=== PATIENT | male | born 1970 | race Two or more races ===

== ENCOUNTER 2020-07-08 14:44 | Outpatient (REF) | payer MEDICARE, MEDICAID, SELFPAY | END 2020-07-08 14:45 | disposition home or self-care (01) | LOC: HO.LAB 14:44 | PROVIDERS: Visit Provider Internal Medicine | DX: Z20.822 Contact with and (suspected) exposure to COVID-19 (principal) | CPT/HCPCS: 36415; C9803; U0003 ==

== ENCOUNTER 2021-05-02 09:15 | Outpatient (REF) | payer MEDICARE, MEDICAID, SELFPAY ==
--- NOTE | ~2021-05-02 | XR_ITS ---
EXAMINATION: XR LUMBOSACRAL SPINE CLINICAL INFORMATION: Intervertebral disc disease with radiculopathy. COMPARISON: None TECHNIQUE: Three views of the lumbosacral spine. FINDINGS: There are 5 nonrib bearing lumbar vertebra. Patient is status post previous pedicle screw and marcela fixation with interdisc spacer placement at the L5-S1 level. Hardware appears intact. No acute fracture is seen. There is a mild grade 1 spondylolisthesis L3-L4. There is some marginal spurring present at multiple levels but most prominent at the T11-T12 and T12-L1 levels. XR/XR lumbar spine 2-3V IMPRESSION: Status post instrumentation L5-S1 with hardware appearing intact. No acute fracture identified.
[2021-05-02 10:32] LABS: Estimated Average Glucose 111 mg/dL; Hemoglobin A1c % 5.5 %
[2021-05-02 10:50] LABS: Prostate Specific Antigen Scr 1.48 ng/mL (<0.05-4.0); TSH reflex Free T4 1.06 uIU/mL (0.32-4.0)
[2021-05-02 10:53] LABS: Alanine Aminotransferase 34 U/L (0-40); Albumin Level 4.6 g/dL (3.5-5.0); Alkaline Phosphatase 102 U/L (39-117); Anion Gap 11 (12-20); Aspartate Amino Transferase 26 U/L (5-37); Bilirubin Total 0.7 mg/dL (0.0-1.0); Blood Urea Nitrogen 10 mg/dL (9-16); Calcium 9.5 mg/dL (8.4-10.2); Carbon Dioxide 29 mmol/L (22-29); Chloride 106 mmol/L (96-108); Cholesterol 222 mg/dL; Estimated Glomerular Filt Rate > 60; Glucose Fasting 88 mg/dL (60-99); HDL Cholesterol 38 mg/dL; LDL Cholesterol Calculated 160 mg/dl; Potassium 4.8 mmol/L (3.3-5.1); Sodium 141 mmol/L (135-145); Total Protein 7.1 g/dL (6.5-8.0); Triglycerides 120 mg/dL
== END 2021-05-02 09:16 | disposition home or self-care (01) ==
LOC: HO.XRAY 09:15
PROVIDERS: PCP Physician Assistant; Visit Provider Physician Assistant
DX: M51.16 Intervertebral disc disorders with radiculopathy, lumbar region (principal); Z13.1 Encounter for screening for diabetes mellitus; Z13.29 Encounter for screening for other suspected endocrine disorder; Z12.11 Encounter for screening for malignant neoplasm of colon; Z12.5 Encounter for screening for malignant neoplasm of prostate
CPT/HCPCS: 36415; 72100; 80053; 80061; 83036; 84153; 84443

== ENCOUNTER 2023-08-13 07:37 | Outpatient (AMB) | payer MEDICARE, MEDICAID, SELFPAY ==
--- NOTE | 2023-08-13 08:02 | A.OFFPC_ITS ---
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 Required: No Accompanied by: Self / Same As Patient Allergies codeine Allergy (Unknown, Verified 08/13/23 08:12) Itching Adhesive (ENV) Allergy (Unknown, Uncoded 10/29/19 00:00) itching of skin, Blistering and scarring Codeine Allergy (Unknown, Uncoded 10/29/19 00:00) itching of skin Medication List - Last Reconciled 08/13/23 by Dean Fitzpatrick PA-C bupropion HCl (Wellbutrin SR) 150 mg PO BID 30 days ibuprofen 800 mg PO TID PRN ipratropium-albuterol 20-100 mcg/actuation (Combivent Respimat) 1 puff inhalation Q6H 30 days pregabalin 100 mg PO BID 90 days Tobacco use date assessed: 08/13/23 Dental Screening Dental Screen Date: 08/13/23 Did you have a dental visit in the last 12 months?: No Did you have a dental problem in the last 6 months where you did not have access to dental care?: No Was dental information given to patient?: Patient has dentist HPI Left shoulder Rotator Cuff Surgery On 08/27/23 HPI Details Patient is a 53-year-old male here today for preop evaluation . Patient is due for left rotator cuff repair on 08/27/2023. Patient has a past medical history significant for lumbar disc disease with marcela placement done many years ago, COPD, tobacco use disorder. Patient has no history of CVA, NE or Congestive heart failure. Patient is not on any anticoagulation or anti-platelet therapy. .. COPD: His breathing has been stable with only p.r.n. use of his Combivent inhaler. Unfortunately continues to smoke. He has not had any COPD exacerbations Lumbar disc disease: As above patient did have back surgery in the past. Continues with Lyrica and ibuprofen for his pain relief. 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 Tobacco use disorder: He does report smoking a pack a day of cigarettes. Has been trying to wean down though has been unsuccessful. [facility] Surgical History Previous back surgery Family History Father Prostate cancer Social History Housing: House Alcohol intake: never Patient Tobacco Use Status: Current everyday Tobacco user Tobacco use type: Cigarette Cigarette Packs Per Day: 1 e-Cigarette/Vaping Use: Never Used Second Hand Smoke Exposure: No Substance Use Type: Marijuana service: No Current occupational status: unemployed and disabled Cognitive needs: No Hearing needs: No Vision needs: No Questionnaire PHQ-9 Over the last 2 weeks, how often have you been bothered by any of the following problems? 1. Little interest or pleasure in doing things: several days 2. Feeling down, depressed, or hopeless: several days 3. Trouble falling or staying asleep, or sleeping too much: nearly every day 4. Feeling tired or having little energy: more than half the days 5. Poor appetite or overeating: several days 6. Feeling bad about yourself - or that you are a failure or have let yourself or your family down: not at all 7. Trouble concentrating on things, such as reading the newspaper or watching television: not at all 8. Moving or speaking so slowly that other people could have noticed. Or the opposite - being so fidgety or restless that you have been moving around a lot more than usual: not at all 9. Thoughts that you would be better off or of hurting yourself in some way: not at all Total score: 8 Depression Screening Interpretation: Positive Depression Screening Follow-up: Existing condition Depression Screening Done: Yes 33614 - PHQ-9 Billing: Yes Source: Developed by Drs. Edwin Kapoor, Nancy Posey, Nghia Yuan and colleagues, with an educational silvana from [employer]. Thrive Questionnaire Date Thrive assessed: 08/13/23 I am a: Patient What is your living situation today?: I have a steady place to live Within the past 12 months, did the food you bought not last and you didn't have the money to get more?: Never true Within the past 12 months, did you worry whether your food would run out before you got money to buy more?: Never true Do you have trouble paying for medicines?: No Do you have trouble getting transportation to medical appointments?: No Do you have trouble paying your heating and electricity bill?: No Do you have trouble taking care of your child, family member or friend?: No Do you have trouble with day-to-day activities such as bathing, preparing meals, shopping, managing finances, etc.?: No Are you currently unemployed and looking for a job?: No Are you interested in more education?: No Please select the resources that you would like help with: None Currently or been in a relationship where the following occur: no concerns reported THRIVE Score: 0 AUDIT C Alcohol Use Questionnaire (AUDIT-C) 1. How often do you have a drink containing alcohol?: Never Total Score: 0 LUCIAN-7 AMB Questionnaire LUCIAN-7 Date LUCIAN - 7 assessed: 08/13/23 Feeling nervous, anxious, or on edge: 1 = Several days Not being able to stop or control worryin = Several days Worrying too much about different things: 3 = Nearly every day Trouble relaxin = Nearly every day Being so restless that it is hard to sit still: 3 = Nearly every day Becoming easily annoyed or irritable: 3 = Nearly every day Feeling afraid as if something awful might happen: 0 = Not at all Total LUCIAN-7 score (0-4 normal; 5-9 mild; 10-14 moderate; 15-21 severe): 14 Source: Developed by Drs. Edwin Kapoor, Nancy Posey, Nghia Yuan and colleagues, with an educational silvana from [employer]. LUCIAN-7 Assessment Billing LUCIAN-7 Assessment Tool: LUCIAN-7 Assessment 27769 Review of Systems Const Denies headache(s) Eyes Denies loss of vision ENT Denies vertigo, Denies dizziness, Denies headache(s) and Denies sore throat Card Denies chest pain, Denies leg edema and Denies lightheadedness Resp Denies cough, Denies hemoptysis and Denies wheezing GI Denies abdominal pain, Denies melena, Denies constipation, Denies diarrhea and Denies vomiting Denies dysuria, Denies urinary frequency and Denies urinary urgency Musc Denies arthralgias, Denies joint swelling, Denies numbness and Denies tingling Neuro Denies Abnormal speech present, Denies behavioral changes, Denies vertigo, Denies dizziness, Denies headache(s), Denies loss of vision, Denies memory loss, Denies numbness and Denies tingling Psych Denies anxiety, Denies behavioral changes, Denies depression, Denies memory loss and Denies panic attacks Maninder/Lymph Denies easy bleeding and Denies easy bruising Aller/Immun Denies wheezing Physical exam (Primary Care) Vital Signs: Last Vital Signs Pulse 78 08/13/23 08:04 BP 134/80 08/13/23 08:04 Pulse Ox 97 08/13/23 08:04 Oxygen Delivery Method Room Air 08/13/23 08:04 BMI result Body Mass Index 24.2 Tobacco/Smoking Status: Tobacco use Status Tobacco use date assessed 08/13/23 08/13/23 08:09 Patient Tobacco Use Status Current everyday Tobacco 08/13/23 08:09 Tobacco use type Cigarette 08/13/23 08:09 e-Cigarette/Vaping Use Never Used 08/13/23 08:09 PHQ-9: PHQ-9 Score PHQ-9: Total score 8 08/13/23 08:29 Depression Screening Interpretation: Positive Depression Screening Follow-up: Existing condition Thrive Assessment: Date of Thrive Assessment Date Thrive assessed 08/13/23 08/13/23 08:09 Currently or been in a relationship where the following occur: no concerns reported Const General: healthy appearing, no acute distress, alert and awake Nutritional Appearance: well nourished Orientation/consciousness: oriented to person, oriented to place and oriented to time [facility] Ears: TM's normal bilaterally General nose exam: Normal nasal mucous membranes and turbinates present Eyes Conjunctivae: conjunctivae normal Sclerae: sclerae normal Pupils: Equal, round and reactive pupils present Neck Neck: Yes no lymphadenopathy and Yes no JVD Thyroid: Thyroid normal Carotids: no bruits Resp Effort & Inspection: normal respiratory effort and not tachypneic Auscultation: no crackles, no rales, no rhonchi and no wheezes Cardio Rate: regular rate Rhythm: regular rhythm Heart sounds: no murmurs and normal S1 and S2 GI Palpation (GI): Soft to palpation, nontender, no hepatomegaly and no splenomegaly Auscultation: normal bowel sounds Skin General skin exam: no rashes or lesions noted and dry skin Neuro General: oriented to person, oriented to place and oriented to time Cranial nerves: Yes Equal, round and reactive pupils present Speech: No Abnormal speech present Gait exam (Neuro): Normal gait present Motor exam (neuro): no tremor noted Extrem Other: SOME LIMITED RANGE OF MOTION OF BILATERAL SHOULDERS Right upper extremity: ROM limited Left upper extremity: ROM limited Right lower extremity: full ROM; no edema Left lower extremity: full ROM; no edema Psych Mental Status: mental status grossly normal Speech and movement: Normal speech and movement present Affect: normal affect Attitude: cooperative Thought process: Normal thought process present Assessment and Plan Assessment & Plan (1) Pre-op evaluation: Code(s): Z01.818 - Encounter for other preprocedural examination Plan: Patient's vitals stable. Most recent labs stable and EKG within normal limits. Chest x-ray clear. Patient medically clear for needed elective left shoulder rotator cuff repair. (2) Rupture of left rotator cuff: Code(s): M75.102 - Unspecified rotator cuff tear or rupture of left shoulder, not specified as traumatic Qualifiers: Rotator cuff tear extent: complete Rotator cuff tear trauma status: nontraumatic Qualified Code(s): M75.122 - Complete rotator cuff tear or rupture of left shoulder, not specified as traumatic Plan: As per HPI . Has left rotator cuff tear and is anticipating surgery. (3) COPD (chronic obstructive pulmonary disease): Code(s): J44.9 - Chronic obstructive pulmonary disease, unspecified Qualifiers: COPD type: chronic bronchitis Chronic bronchitis type: mixed simple and mucopurulent Qualified Code(s): J41.8 - Mixed simple and mucopurulent chronic bronchitis Plan: Has history of COPD though symptoms are fairly controlled. Only rarely having to use his Combivent inhaler. Will send for chest x-ray preop evaluation (4) Smoker: Code(s): F17.200 - Nicotine dependence, unspecified, uncomplicated Plan: Patient unfortunately continues to smoke. Does understand he needs to quit smoking. Not interested in a nicotine replacement or medication at this time. Orders: Orders Complete Blood Count no Diff Today Z01.818 - Encounter for other preprocedural examination XR chest 2V Today J41.8 - Mixed simple and mucopurulent chronic bronchitis Basic Metabolic Panel Today Z01.818 - Encounter for other preprocedural examination ECG 12 lead EKG Today Z01.818 - Encounter for other preprocedural examination Prostate Specific Antigen Scr Today J41.8 - Mixed simple and mucopurulent chronic bronchitis, Z12.5 - Encounter for screening for malignant neoplasm of prostate Medications: Refilled ibuprofen 800 mg PO TID PRN 90 tabs 1RF for pain M51.16 - Intervertebral disc disorders with radiculopathy, lumbar region Coding Level of Care Code Est Pt Level 4 (51942) Diagnoses Pre-op evaluation Z01.818 Nontraumatic complete tear of left rotator cuff M75.122 Rotator cuff tear extent: complete Rotator cuff tear trauma status: nontraumatic Mixed simple and mucopurulent chronic bronchitis J41.8 COPD type: chronic bronchitis Chronic bronchitis type: mixed simple and mucopurulent Smoker F17.200 Additional Codes LUCIAN-7 Assessment Billing - LUCIAN-7 Assessment Tool: LUCIAN-7 Assessment 14615 ([id number])
[2023-08-13 08:04] VITALS: BP 134/80; PULSE 78; O2SAT 97; BMI 24.2
== END 2023-08-13 08:27 | disposition home or self-care (01) ==
PROVIDERS: PCP Physician Assistant; Visit Provider Physician Assistant
DX: Z01.818 Encounter for other preprocedural examination (principal); M75.122 Complete rotator cuff tear or rupture of left shoulder, not specified as traumatic; J41.8 Mixed simple and mucopurulent chronic bronchitis; F17.210 Nicotine dependence, cigarettes, uncomplicated
CPT/HCPCS: 99214

== ENCOUNTER 2023-08-13 08:32 | Outpatient (REF) | payer MEDICARE, MEDICAID, SELFPAY ==
--- NOTE | ~2023-08-13 | XR_ITS ---
EXAMINATION: XR CHEST CLINICAL INFORMATION: Mixed simple and mucopurulent chronic bronchitis. COMPARISON: None available. TECHNIQUE: 2 views of the chest were obtained. FINDINGS: There is no gross pneumothorax. Heart size is normal. Mild degenerative changes in the thoracic spine. No pleural effusion. Mild streaky opacities at the left lung base may represent atelectasis and/or an infectious/inflammatory process such as pneumonia. XR/XR chest 2V IMPRESSION: 1. Mild streaky opacities at the left lung base may represent atelectasis and/or an infectious/inflammatory process such as pneumonia. 2. Recommend follow-up imaging in 4-6 weeks to confirm resolution and exclude underlying pathology. This study was presented today August 14, 2023 for interpretation. PSA staff will provide results to referring provider at this time.
--- NOTE | 2023-08-13 08:39 | ECG_ITS ---
Test Reason : PRE OP Blood Pressure : / mmHG Vent. Rate : 070 BPM Atrial Rate : 070 BPM P-R Int : 172 ms QRS Dur : 092 ms QT Int : 364 ms P-R-T Axes : 060 064 056 degrees QTc Int : 393 ms Normal sinus rhythm Normal ECG No previous ECGs available Referred By: Dean Fitzpatrick Electronically Signed By:Trevon Granger
[2023-08-13 09:33] LABS: Hematocrit 43.9 % (42.0-52.0); Hemoglobin 14.3 g/dl (14.0-18.0); Mean Corpuscular HGB Conc 32.6 g/dl (31.0-36.0); Mean Corpuscular Hemoglobin 27.4 pg (27.0-33.0); Mean Corpuscular Volume 84.3 fL (80.0-98.0); Mean Platelet Volume 11.7 fL (9.4-12.4); Platelet Count 230 X10*3/uL (160-400); Red Blood Count 5.21 X10*6/uL (4.60-5.80); Red Cell Distribution Width 13.2 % (11.0-16.0)
[2023-08-13 10:09] LABS: Anion Gap 10 (12-20); Blood Urea Nitrogen 9 mg/dL (9-16); Calcium 9.1 mg/dL (8.4-10.2); Carbon Dioxide 28 mmol/L (22-29); Chloride 107 mmol/L (96-108); Estimated Glomerular Filt Rate > 60; Glucose Random 89 mg/dL (60-115); Sodium 141 mmol/L (135-145)
[2023-08-13 10:54] LABS: Prostate Specific Antigen Scr 2.32 ng/mL (<0.05-4.0)
== END 2023-08-13 08:33 | disposition home or self-care (01) ==
LOC: HO.XRAY 08:32
PROVIDERS: PCP Physician Assistant; Visit Provider Physician Assistant
DX: Z01.818 Encounter for other preprocedural examination (principal); Z12.5 Encounter for screening for malignant neoplasm of prostate; J41.8 Mixed simple and mucopurulent chronic bronchitis
CPT/HCPCS: 36415; 71046; 80048; 84153; 85027; 93005

== ENCOUNTER → 2023-08-13 08:39 | Outpatient (BNV) | payer MEDICARE, MEDICAID, SELFPAY | PROVIDERS: PCP Physician Assistant; Visit Provider Internal Medicine Cardiovascular Disease | DX: Z01.818 Encounter for other preprocedural examination (principal); M75.102 Unspecified rotator cuff tear or rupture of left shoulder, not specified as traumatic | CPT/HCPCS: 93010 ==

== ENCOUNTER 2023-08-21 08:01 | Outpatient (REF) | payer MEDICARE, MEDICAID, SELFPAY ==
--- NOTE | ~2023-08-21 | XR_ITS ---
EXAMINATION: XR CHEST CLINICAL INFORMATION: Bronchitis, nonspecified is acute or chronic Confirm resolution of streaky opacities COMPARISON: Chest 08/13/2023 TECHNIQUE: 2 views of the chest were obtained. FINDINGS: The lungs are well expanded. No significant change in streaky opacity at the left lung base, more suggestive of atelectasis and less likely pneumonia. No significant abnormality is noted involving the heart, mediastinum, bony thorax or soft tissues. XR/XR chest 2V IMPRESSION: No significant change in left basilar atelectasis and less likely pneumonia.
== END 2023-08-21 08:02 | disposition home or self-care (01) ==
LOC: HO.XRAY 08:01
PROVIDERS: PCP Physician Assistant; Visit Provider Physician Assistant
DX: J40 Bronchitis, not specified as acute or chronic (principal)
CPT/HCPCS: 71046

== ENCOUNTER 2023-10-24 15:15 | Outpatient (AMB) | payer MEDICARE, MEDICAID, SELFPAY ==
[2023-10-24 15:16] VITALS: BP 110/70; PULSE 77; O2SAT 97; BMI 25.2
--- NOTE | 2023-10-24 15:16 | A.OFFPC_ITS ---
Vital Signs 10/24/23 15:16 Height 5 ft 6 in Weight 156 lb BMI 25.2 BP 110/70 Blood Pressure Location Lt brachial Position Sitting Pulse 77 Pulse Source Pulse Oximeter Pulse Oximetry (%) 97 Oxygen Delivery Method Room Air Intake Visit Reasons: Transfer of care from Dr. Fitzpatrick Business Coordinator Required: No Allergies codeine Allergy (Unknown, Verified 10/24/23 15:17) Itching Adhesive (ENV) Allergy (Unknown, Uncoded 10/24/23 15:17) itching of skin, Blistering and scarring Codeine Allergy (Unknown, Uncoded 10/24/23 15:17) itching of skin Medication List - Last Reconciled 10/24/23 by Gabriela Echavarria MD ibuprofen 800 mg PO TID PRN ipratropium-albuterol 20-100 mcg/actuation (Combivent Respimat) 1 puff inhalation Q6H 30 days pregabalin 100 mg PO BID 90 days Tobacco use date assessed: 10/24/23 Dental Screening Dental Screen Date: 10/24/23 Did you have a dental visit in the last 12 months?: Yes Did you have a dental problem in the last 6 months where you did not have access to dental care?: No Was dental information given to patient?: Patient has dentist HPI Transfer of care from Dr. Fitzpatrick HPI Details 53-year-old male smoker with a history o f lumbar disc disease COPD coming in as a transfer 1st time to be seen. review of the notes follows up with orthopedics for full-thickness rotator cuff tear being followed up by orthopedics [facility] Medical History (Updated 10/24/23 @ 16:00 by Gabrieal Echavarria MD) Smoker Bronchitis Screening for hypercholesterolemia Screening for hypothyroidism Screening for diabetes mellitus (DM) Surgical History (Updated 10/24/23 @ 16:05 by Gabriela Echavarria MD) History of rotator cuff surgery Previous back surgery Family History Father Prostate cancer Social History (Updated 10/24/23 @ 16:09 by Gabriela Echavarria MD) Housing: House Alcohol intake: never Patient Tobacco Use Status: Current everyday Tobacco user Tobacco use type: Cigarette Cigarette Packs Per Day: 1 Years Smoked: since 13 years old, marijuana e-Cigarette/Vaping Use: Never Used Second Hand Smoke Exposure: No Substance Use Type: Marijuana service: No Current occupational status: unemployed and disabled Cognitive needs: No Hearing needs: No Vision needs: No Questionnaire PHQ-9 Over the last 2 weeks, how often have you been bothered by any of the following problems? 1. Little interest or pleasure in doing things: several days 2. Feeling down, depressed, or hopeless: several days 3. Trouble falling or staying asleep, or sleeping too much: nearly every day 4. Feeling tired or having little energy: more than half the days 5. Poor appetite or overeating: several days 6. Feeling bad about yourself - or that you are a failure or have let yourself or your family down: not at all 7. Trouble concentrating on things, such as reading the newspaper or watching television: not at all 8. Moving or speaking so slowly that other people could have noticed. Or the opposite - being so fidgety or restless that you have been moving around a lot more than usual: not at all 9. Thoughts that you would be better off or of hurting yourself in some way: not at all Total score: 8 Depression Screening Interpretation: Positive Depression Screening Follow-up: Existing condition Depression Screening Done: Yes 68029 - PHQ-9 Billing: Yes Source: Developed by Drs. Edwin Kapoor, Nancy Posey, Nghia Yuan and colleagues, with an educational silvana from [employer]. Thrive Questionnaire Date Thrive assessed: 08/13/23 I am a: Patient What is your living situation today?: I have a steady place to live Within the past 12 months, did the food you bought not last and you didn't have the money to get more?: Never true Within the past 12 months, did you worry whether your food would run out before you got money to buy more?: Never true Do you have trouble paying for medicines?: No Do you have trouble getting transportation to medical appointments?: No Do you have trouble paying your heating and electricity bill?: No Do you have trouble taking care of your child, family member or friend?: No Do you have trouble with day-to-day activities such as bathing, preparing meals, shopping, managing finances, etc.?: No Are you currently unemployed and looking for a job?: No Are you interested in more education?: No Please select the resources that you would like help with: None Currently or been in a relationship where the following occur: no concerns reported THRIVE Score: 0 AUDIT C Alcohol Use Questionnaire (AUDIT-C) 1. How often do you have a drink containing alcohol?: Never 3. How often do you have six or more drinks on one occasion?: Never Total Score: 0 LUCIAN-7 AMB Questionnaire LUCIAN-7 Date LUCIAN - 7 assessed: 08/13/23 Feeling nervous, anxious, or on edge: 1 = Several days Not being able to stop or control worryin = Several days Worrying too much about different things: 3 = Nearly every day Trouble relaxin = Nearly every day Being so restless that it is hard to sit still: 3 = Nearly every day Becoming easily annoyed or irritable: 3 = Nearly every day Feeling afraid as if something awful might happen: 0 = Not at all Total LUCIAN-7 score (0-4 normal; 5-9 mild; 10-14 moderate; 15-21 severe): 14 Source: Developed by Drs. Edwin Kapoor, Nancy Posey, Nghia Yuan and colleagues, with an educational silvana from [employer]. LUCIAN-7 Assessment Billing LUCIAN-7 Assessment Tool: LUCIAN-7 Assessment 41129 Physical exam (Primary Care) Vital Signs: Last Vital Signs Pulse 77 10/24/23 15:16 BP 110/70 10/24/23 15:16 Pulse Ox 97 10/24/23 15:16 Oxygen Delivery Method Room Air 10/24/23 15:16 BMI result Body Mass Index 25.2 Tobacco/Smoking Status: Tobacco use Status Tobacco use date assessed 10/24/23 10/24/23 15:18 Patient Tobacco Use Status Current everyday Tobacco 10/24/23 16:09 Tobacco use type Cigarette 10/24/23 16:09 e-Cigarette/Vaping Use Never Used 10/24/23 16:09 PHQ-9: PHQ-9 Score PHQ-9: Total score 8 10/24/23 16:17 Depression Screening Interpretation: Positive Depression Screening Follow-up: Existing condition Thrive Assessment: Date of Thrive Assessment Date Thrive assessed 08/13/23 10/24/23 15:18 Currently or been in a relationship where the following occur: no concerns reported Const General: alert; No acute distress Eyes Conjunctivae: conjunctivae normal Resp Auscultation: clear to auscultation bilaterally Cardio Rate: regular rate Rhythm: regular rhythm GI Inspection: Yes normal to inspection Extrem General: Yes normal to inspection and No edema Immunizations Boostrix Tdap 2.5 Lf unit-8 mcg-5 Lf/0.5 mL intramuscular syringe Performing Provider: Gabriela Echavarria MD [facility] Administered by: SUSAN Baugh on 10/24/23 16:17 Dose Route Admin Location Dispensed Lot Number Expiration Date NDC Pressure Test Operator 0.5 mL IM Right Deltoid 0.5 mL [id number] 11/02/25 [id number] [employer] VIS Given Date VIS Provided VIS Publication Date 10/24/23 Single Vaccine 21 Eligibility Eligibility Date Funding Source Not [facility] Eligible 10/24/23 Private Assessment and Plan Assessment & Plan (1) Rupture of left rotator cuff: Code(s): M75.102 - Unspecified rotator cuff tear or rupture of left shoulder, not specified as traumatic Qualifiers: Rotator cuff tear extent: complete Rotator cuff tear trauma status: nontraumatic Qualified Code(s): M75.122 - Complete rotator cuff tear or rupture of left shoulder, not specified as traumatic Plan: Patient is being followed up by orthopedics. (2) Hypercholesterolemia: Code(s): E78.00 - Pure hypercholesterolemia, unspecified Plan: Avoid fried foods, chicken skin, eggs, butter margarine, pastries and meat. Be it pork or beef they have a lot of cholesterol LDL goal of less than 130 and triglyceride of less than 150. (3) Tobacco abuse: Code(s): Z72.0 - Tobacco use Plan: Patient is strongly advised to stop smoking! (4) COPD (chronic obstructive pulmonary disease): Code(s): J44.9 - Chronic obstructive pulmonary disease, unspecified Qualifiers: COPD type: chronic bronchitis Chronic bronchitis type: mixed simple and mucopurulent Qualified Code(s): J41.8 - Mixed simple and mucopurulent chronic bronchitis Plan: Patient is advised to stop smoking! On Combivent presently. (5) Generalized anxiety disorder: Code(s): F41.1 - Generalized anxiety disorder Orders: Orders Lipid Panel Today E78.00 - Pure hypercholesterolemia, unspecified Thyroid Stimulating Hormone Today E78.00 - Pure hypercholesterolemia, unspecified Vitamin B12 and Folate Today E78.00 - Pure hypercholesterolemia, unspecified TDaP Immunization Today Z23 - Encounter for immunization Complete Blood Count Auto Diff Today E78.00 - Pure hypercholesterolemia, unspecified Comprehensive Met. Panel Today E78.00 - Pure hypercholesterolemia, unspecified Free T4 (Free Thyroxine) Today E78.00 - Pure hypercholesterolemia, unspecified Referrals Gastroenterology Referral Z12.11 - Encounter for screening for malignant neoplasm of colon Psychiatry Referral F41.1 - Generalized anxiety disorder Thoracic Surgery Referral Z72.0 - Tobacco use Medications: Refilled ipratropium-albuterol 20-100 mcg/actuation (Combivent Respimat) 1 puff inhalation Q6H 4 grams 6RF 30 days J44.9 - Chronic obstructive pulmonary disease, unspecified ibuprofen 800 mg PO TID PRN 90 tabs 1RF for pain M51.16 - Intervertebral disc disorders with radiculopathy, lumbar region Coding Level of Care Code Est Pt Level 4 (14506) Diagnoses Nontraumatic complete tear of left rotator cuff M75.122 Rotator cuff tear extent: complete Rotator cuff tear trauma status: nontraumatic Hypercholesterolemia E78.00 Tobacco abuse Z72.0 Mixed simple and mucopurulent chronic bronchitis J41.8 COPD type: chronic bronchitis Chronic bronchitis type: mixed simple and mucopurulent Generalized anxiety disorder F41.1 Additional Codes LUCIAN-7 Assessment Billing - LUCIAN-7 Assessment Tool: LUCIAN-7 Assessment 24231 ([id number])
== END 2023-10-24 16:32 | disposition home or self-care (01) ==
PROVIDERS: PCP Physician Assistant; Visit Provider Internal Medicine
DX: J41.8 Mixed simple and mucopurulent chronic bronchitis (principal); M75.122 Complete rotator cuff tear or rupture of left shoulder, not specified as traumatic; E78.00 Pure hypercholesterolemia, unspecified; Z23 Encounter for immunization; Z72.0 Tobacco use; F41.1 Generalized anxiety disorder
CPT/HCPCS: 90471; 90715; 99214

== ENCOUNTER → 2024-03-19 13:46 | Outpatient (BNVA) | payer MEDICARE, MEDICAID, SELFPAY | PROVIDERS: PCP Physician Assistant; Visit Provider Internal Medicine ==

== ENCOUNTER 2024-04-15 12:38 | Outpatient (AMB) | payer MEDICARE, MEDICAID, SELFPAY ==
--- NOTE | 2024-04-15 13:15 | MHC.OFFVIS ---
Vital Signs 04/15/24 13:18 Height 5 ft 6 in Weight 152 lb BMI 24.5 BP 110/62 Blood Pressure Location Lt brachial Position Sitting Pulse 79 Intake Visit Reasons: Colonoscopy Screening Intake Note: Patient new consult for 2nd pre colonoscopy screening. Patient dd: diarrhea with coffee. Denies any other GI issues. Senior Business Manager Required: No Accompanied by: Self / Same As Patient Allergies codeine Allergy (Unknown, Verified 04/15/24 13:15) Itching Adhesive (ENV) Allergy (Unknown, Uncoded 03/19/24 14:46) itching of skin, Blistering and scarring Codeine Allergy (Unknown, Uncoded 03/19/24 14:46) itching of skin HPI HPI Colonoscopy Screening: Details: 54 year old? male here today for pre colonoscopy screening.? Patient was sent to us by his PCP.? Patient had colonoscopy in 2000. Diagnostic. Patient states that he had abdominal pain at that time. Patient had normal colonoscopy then.? Patient denies any gastrointestinal symptoms in the past or at present.? Denies any personal or family history of gastrointestinal disease, colon polyps, or CRC.? Denies history of difficulty with sedation or anesthesia in the past.? Negative for history of sleep apnea.? Denies any history of cardiac, renal, pulmonary, or hepatic disease.?? No history of infectious? diseases like hepatitis A, B, C, HIV or tuberculosis.? Patient is not on any anticoagulation [facility] Medical History (Updated 10/24/23 @ 16:00 by Gabriela Echavarria MD) Smoker Bronchitis Screening for hypercholesterolemia Screening for hypothyroidism Screening for diabetes mellitus (DM) Surgical History History of rotator cuff surgery Previous back surgery Family History Father Prostate cancer Social History Housing: House Alcohol intake: never Patient Tobacco Use Status: Current everyday Tobacco user Tobacco use type: Cigarette Cigarette Packs Per Day: 1 Years Smoked: since 13 years old, marijuana e-Cigarette/Vaping Use: Never Used Second Hand Smoke Exposure: No Substance Use Type: Marijuana service: No Current occupational status: unemployed and disabled Cognitive needs: No Hearing needs: No Vision needs: No Review of Systems Const Denies weight gain and Denies weight loss ENT Reports no additional complaints, Denies dysphagia and Denies odynophagia Card Reports no additional complaints Resp Reports no additional complaints GI Denies abdominal pain, Denies belching, Denies melena, Denies bloating, Denies change in bowel habits, Denies dysphagia, Denies excessive flatus, Denies dyspepsia, Denies heartburn, Denies diarrhea, Denies loose stools, Denies nausea, Denies odynophagia and Denies vomiting Reports no additional complaints Musc Reports no additional complaints Neuro Reports no additional complaints Psych Reports no additional complaints Endo Reports no additional complaints Physical Exam Vital Signs: Last Vital Signs Pulse 79 04/15/24 13:18 BP 110/62 04/15/24 13:18 BMI result Body Mass Index 24.5 Const General: healthy appearing, no acute distress and well developed Nutritional Appearance: well nourished Orientation/consciousness: patient oriented x3 Resp Effort & Inspection: normal respiratory effort, able to speak in complete sentences, no tracheal deviation and symmetric chest movement Auscultation: clear to auscultation bilaterally Cardio Rate: regular rate GI Inspection: Yes normal to inspection and No distended Palpation (GI): Soft to palpation, not firm, nontender and No hepatosplenomegaly present Auscultation: normal bowel sounds General: Yes no CVA tenderness Back/Spine/Pelvis Back: no CVA tenderness Skin General skin exam: elasticity normal, turgor normal and dry skin Neuro General: patient oriented x3 Psych Appearance: grossly normal Mental Status: mental status grossly normal Assessment & Plan Assessment & Plan (1) Colon cancer screening: Code(s): Z12.11 - Encounter for screening for malignant neoplasm of colon Category: Medical Plan Patient denies any GI, cardiac or respiratory symptoms.? Denies any issues with anesthesia in the past.? Denies any history of sleep apnea.? No history infectious diseases in the past or present.? Not on any anticoagulation therapy.? No family or personal history of colon cancer or polyps.? Patient denies melena, hematochezia, unintentional weight loss or ribbon like stools.? Discussed at length the pre-procedure,? prep, diet & medications as well as what to expect prior, during and after the procedure.?? Stressed the importance of good bowel prep.? Recommended the use of Vaseline or Calmoseptine OTC & baby wipes with bowel movements to promote comfort.? ?Patient verbalizes understanding and agrees to plan of care.? He was given the opportunity to ask questions and all questions answered.? We will see him after the procedure.? Medications: New bisacodyl (Dulcolax (bisacodyl)) take 4 tabs at noon the day before your colonoscopy 20 mg (4 x 5 mg) PO ONCE 4 tabs 0RF 1 day Z12.11 - Encounter for screening for malignant neoplasm of colon polyethylene glycol 3350 (Miralax) As directed by gastroenterology department at [facility] 238 grams PO ONCE 238 grams 0RF Z12.11 - Encounter for screening for malignant neoplasm of colon Coding Level of Care Code New Pt Level 3 (81847) Diagnoses Colon cancer screening Z12.11 Time Spent (min) 40 Comment 30 minutes spent with patient and additional 10 minutes spent reviewing his records
[2024-04-15 13:18] VITALS: BP 110/62; PULSE 79; BMI 24.5
== END 2024-04-15 13:52 | disposition home or self-care (01) ==
PROVIDERS: PCP Physician Assistant; Visit Provider Nurse Practitioner Family
DX: Z01.818 Encounter for other preprocedural examination (principal); Z12.11 Encounter for screening for malignant neoplasm of colon
CPT/HCPCS: 99024

== ENCOUNTER → 2024-04-15 12:38 | Outpatient (BNVA) | payer MEDICARE, MEDICAID, SELFPAY | PROVIDERS: PCP Physician Assistant; Visit Provider Nurse Practitioner Family | DX: Z12.11 Encounter for screening for malignant neoplasm of colon (principal) | CPT/HCPCS: 99212 ==

== ENCOUNTER 2024-08-18 08:07 | Day surgery (SDC) | payer MEDICARE, MEDICAID, SELFPAY ==
[2024-08-13 13:51] VITALS: BMI 24.5
--- NOTE | 2024-08-14 09:54 | P.CONAN_ITS ---
Documented by User: Barbara Murphy NP 08/14/24 09:54 HPI - Anesthesia Eval Consult details Narrative: 54yo M for Colonoscopy PMFSH Active Problems Active Problems: All Active Problems Generalized anxiety disorder (Acute) Tobacco abuse (Acute) Hypercholesterolemia (Acute) Rupture of left rotator cuff (Acute) Pre-op evaluation (Acute) Colon cancer screening (Acute) COPD (chronic obstructive pulmonary disease) (Acute) Neuropathy (Acute) Lumbar disc disease with radiculopathy (Acute) Annual physical exam (Acute) Past Medical History Medical History (Updated 10/24/23 @ 16:00 by Gabriela Echavarria MD) Smoker Bronchitis Screening for hypercholesterolemia Screening for hypothyroidism Screening for diabetes mellitus (DM) Family History Family History Father Prostate cancer Surgical History Surgical History History of rotator cuff surgery Previous back surgery Social History Social History Housing: House Alcohol intake: never Patient Tobacco Use Status: Current everyday Tobacco user Tobacco use type: Cigarette Cigarette Packs Per Day: 1 Years Smoked: since 13 years old, marijuana e-Cigarette/Vaping Use: Never Used Second Hand Smoke Exposure: No Substance Use Type: Marijuana Substance Use Frequency: Chronic Longstanding Have you been hit, kicked, punched, or otherwise hurt by someone within the past year? If so, by whom?: No Are you DNR?: No Advance Directives: No Advance Directives Information Provided: Yes Nutrition Risks: No Nutritional Risk service: No Current occupational status: unemployed and disabled Cognitive needs: No Hearing needs: No Vision needs: No Meds Allergies Allergy/AdvReac Type Severity Reaction Status Date / Time codeine Allergy Unknown Itching Verified 04/15/24 13:15 Adhesive (ENV) Allergy Unknown itching of Uncoded 03/19/24 14:46 skin, Blistering and scarring Codeine Allergy Unknown itching of Uncoded 03/19/24 14:46 skin Exam Height,Weight and Vital Signs: Height 5 ft 6 in Weight 68.946 kg Assessment and Plan Assessment Anesthesia Assessment: Chart Reviewed Documented by User: Sherwin Mooney MD 08/18/24 09:01 [facility] Past Medical History Medical History (Updated 10/24/23 @ 16:00 by Gabriela Echavarria MD) Smoker Bronchitis Screening for hypercholesterolemia Screening for hypothyroidism Screening for diabetes mellitus (DM) Family History Family History Father Prostate cancer Family history of problems with anesthesia: No Surgical History Surgical History History of rotator cuff surgery Previous back surgery History of Problems with Anesthesia: No Social History Social History Housing: House Alcohol intake: never Patient Tobacco Use Status: Current everyday Tobacco user Tobacco use type: Cigarette Cigarette Packs Per Day: 1 Years Smoked: since 13 years old, marijuana e-Cigarette/Vaping Use: Never Used Second Hand Smoke Exposure: No Substance Use Type: Marijuana Substance Use Frequency: Chronic Longstanding Have you been hit, kicked, punched, or otherwise hurt by someone within the past year? If so, by whom?: No Are you DNR?: No Advance Directives: No Advance Directives Information Provided: Yes Nutrition Risks: No Nutritional Risk service: No Current occupational status: unemployed and disabled Cognitive needs: No Hearing needs: No Vision needs: No Meds Allergies Allergy/AdvReac Type Severity Reaction Status Date / Time codeine Allergy Unknown Itching Verified 04/15/24 13:15 Adhesive (ENV) Allergy Unknown itching of Uncoded 03/19/24 14:46 skin, Blistering and scarring Codeine Allergy Unknown itching of Uncoded 03/19/24 14:46 skin Exam Airway Mallampati Class: I TM Dist: >3cm Neck ROM: Full Denture: Upper Heart: ok Lungs: ok Assessment and Plan Assessment Anesthesia Assessment: Anesthesia Plan Discussed Final Anesthetic Review Family History of Problems with Anesthesia: No History of Problems with Anesthesia: No NPO: Yes ASA Class: II Final Preanesthetic Review: No Changes in Pt Med Stat, Meds/Allgs Chart Reviewed, Consent Obtained/Reviewed and Anes Risks/Benef Reviewed Patient Risk: Intermediate Procedure Risk: Low Anesthetic Plan Anesthetic Plan: MAC: and Agree w/ Assess. and Plan Disposition: Standard PACU
[2024-08-18 08:10] VITALS: BP 143/78; PULSE 67; RESP 18; TEMP 36.9; O2SAT 97; BMI 24.3
--- NOTE | 2024-08-18 08:24 | MHC.SHP ---
Pre-Procedural Eval Section A - 24 Hr Update-Section A only Date of Service: 08/18/24 Section B - Complete if H&P > 30 days Chief Complaint: Encounter for screening for malignant neoplasm of Details of Present Illness: dad crc-60 Relevant Family History (Specify if Yes): Yes Relevant Social History: Tobacco Use (thc) Present Medications: see Short Stay Collaborative assessment Medical History: Significant History (Smoker Bronchitis) History of Previous Operations: Relevant previous surgery/procedure and date(s) (History of rotator cuff surgery Previous back surgery) Allergies: Allergies Allergy/AdvReac Type Severity Reaction Status Date / Time codeine Allergy Unknown Itching Verified 04/15/24 13:15 Adhesive (ENV) Allergy Unknown itching of Uncoded 03/19/24 14:46 skin, Blistering and scarring Codeine Allergy Unknown itching of Uncoded 03/19/24 14:46 skin Review of Systems Sugical H&P ROS: Negative: Constitution, Cardiovascular, Respiratory, Neurological, Psychiatric, Hem-Onc, Allergic/Immunologic, Gastrointestinal, Genitourinary, Musculoskeletal, Integumentary, Endocrine and Eyes/Ears/Nose/Throat Exam Surgical H&P Exam: Normal: HEENT, Normal: Heart, Normal: Lungs, Normal: Extremities, Normal: Abdomen, Normal: Skin and Normal: Neurological Plan Diagnosis/Plan: Unchanged I have reviewed the history and physical and performed a pertinent physical examination on my patient. No changes have occurred unless specified. Time Spent With Patient Time: Total time managing care of this patient today ____ minutes.
[2024-08-18] MEDS: Lactated Ringers 1,000 ML 100 ML IVCONT (08:25)
--- NOTE | 2024-08-18 09:26 | HO.OPN-COLON ---
Colonoscopy Operative Note Operative Note Date of Service: 08/18/24 Narrative: Operative Information Procedure Description: Colonoscopy Indication: screening Anesthesia: MAC COLONOSCOPY Instrument: Olympus variable stiffness pediatric scope 190L Colonoscopy Monitoring: Vital signs and clinical assessment, continuous EKG monitoring, Pulse oximetry, Carbon Dioxide monitoring and blood pressure monitoring were done throughout the procedure. Colon withdrawal time was 17 minutes. Procedure: The patient was placed in the left lateral decubitis position and pre-procedure medications were administered. After a digital rectal examination of the ano-rectum, the video colonoscope was inserted into the rectum and advanced through the colon to the cecum/TI. The colonoscope was slowly withdrawn in a retrograde panoramic fashion and the colon mucosa was carefully examined including a retroflexed view of the rectum. Findings and interventions are described below. Procedure Difficulty: easy Findings: Terminal Ileum-normal Cecum: x 2 lateral spreading granular polyps noted, one was 7-9 mm and the other about 10-11 mm. They were lifted with eleview injection and removed with cold snare by EMR technique Ascending Colon: x2 sessile polyps 6-9 mm removed with cold snare, and x 1 sessile polyp 5-7 mm removed with cold forceps Transverse Colon -normal Descending Colon:normal Sigmoid Colon: mild to moderate divertciulosis Rectum: Retroflexion with small internal hemorrhoids seen, grade I Anorectum - normal Intervention: cold snare, elview injection and EMR, cold forceps Colon preparation: [place] Bowel Preparation Scale Right colon; 1-2 Transverse colon: 2 Left colon; 1-2 (0 = Unprepared colon segment with mucosa not seen due to solid stool that cannot be cleared. 1 = Portion of mucosa of the colon segment seen, but other areas of the colon segment not well seen due to staining, residual stool and/or opaque liquid. 2 = Minor amount of residual staining, small fragments of stool and/or opaque liquid, but mucosa of colon segment seen well. 3 = Entire mucosa of colon segment seen well with no residual staining, small fragments of stool or opaque liquid) Impression and Post Procedure Diagnosis: diverticulosis colon polyps x 5 internal hemorrhoids Plan: High fiber diet leaflet Avoid straining at stool, epsom salts and sitz bath, anusol supps or cream Repeat Colonoscopy in 1 year due to areas of fair prep and polyps or earlier if clinically indicated Above findings were reviewed with the patient and relevant handouts were provided if indicated.
[2024-08-18 09:34] VITALS: BP 116/63; PULSE 66; RESP 18; TEMP 36.1; O2SAT 97
[2024-08-18 09:49] VITALS: BP 116/76; PULSE 56; RESP 16; TEMP 36.1; O2SAT 99
== END 2024-08-18 10:09 | disposition home or self-care (01) ==
PROVIDERS: PCP Physician Assistant; Visit Provider Internal Medicine Gastroenterology
PROC: 0DJD8ZZ Inspection of Lower Intestinal Tract, Via Natural or Artificial Opening Endoscopic (ICD-10-PCS; CPT 45378; principal; 2024-08-18 11:00)
DX: Z12.11 Encounter for screening for malignant neoplasm of colon (principal); D12.0 Benign neoplasm of cecum; D12.2 Benign neoplasm of ascending colon; K57.30 Diverticulosis of large intestine without perforation or abscess without bleeding; K64.0 First degree hemorrhoids; J40 Bronchitis, not specified as acute or chronic; F12.10 Cannabis abuse, uncomplicated; F17.210 Nicotine dependence, cigarettes, uncomplicated; L23.1 Allergic contact dermatitis due to adhesives; Z88.5 Allergy status to narcotic agent; Z98.890 Other specified postprocedural states; Z56.0 Unemployment, unspecified
CPT/HCPCS: 45385; 45380; 45381; 88305; J2003; J2704

== ENCOUNTER → 2024-08-18 08:07 | Outpatient (BNV) | payer MEDICARE, MEDICAID, SELFPAY | PROVIDERS: PCP Physician Assistant; Visit Provider Internal Medicine Gastroenterology | DX: Z12.11 Encounter for screening for malignant neoplasm of colon (principal); D12.0 Benign neoplasm of cecum; D12.2 Benign neoplasm of ascending colon; K57.30 Diverticulosis of large intestine without perforation or abscess without bleeding; K64.0 First degree hemorrhoids | CPT/HCPCS: 45380; 45381; 45385 ==

== ENCOUNTER → 2025-04-27 09:30 | Outpatient (BNV) | payer MEDICARE, MEDICAID, SELFPAY | PROVIDERS: PCP Student in an Organized Health Care Education/Training Program; Visit Provider Radiology Diagnostic Radiology | DX: M51.360 Other intervertebral disc degeneration, lumbar region with discogenic back pain only (principal); M48.061 Spinal stenosis, lumbar region without neurogenic claudication; M89.38 Hypertrophy of bone, other site | CPT/HCPCS: 72148 ==

== ENCOUNTER 2025-04-27 09:32 | Outpatient (REF) | payer MEDICARE, MEDICAID, SELFPAY ==
--- NOTE | ~2025-04-27 | MR_ITS ---
CLINICAL HISTORY: LUMBAR REGION LOW BACK PAIN MR lumbar spine without gadolinium Comparison: None Findings: No plain films are available for comparison. Thus, for numbering purposes, 5 lumbar type vertebral bodies will be presumed. This should be confirmed with plain films prior to any lumbar spinal intervention.5 mm of retrolisthesis of L1 on L2. 3 mm of retrolisthesis of L2 on L3. 6 mm of retrolisthesis of L3 on L4. 4 mm of retrolisthesis of L4 on L5. 4 mm of anterolisthesis of L5 on S1. No acute fracture or pathologic bone lesion. Moderate reactive signal within the endplates adjacent to the L3-L4 intervertebral disc. Mild reactive signal within the remaining lumbar and lower thoracic endplates. Posterior fusion hardware at L5-S1. Cauda equina and conus medullaris within normal limits. Paraspinous musculature intact. No paraspinous masses. L1-L2: Moderate disc height loss and desiccation. Mild diffuse disc bulge. Mild facet and ligamentum flavum hypertrophy. Mild epidural lipomatosis. Mild canal stenosis. Mild bilateral foraminal stenosis. L2-L3:Mild disc desiccation and diffuse disc bulge. Mild facet and ligamentum flavum hypertrophy. Mild epidural lipomatosis. Mild canal stenosis. Mild left foraminal stenosis. No right foraminal stenosis. L3-L4:Moderate disc height loss and desiccation. Moderate diffuse disc bulge. Mild facet and ligamentum flavum hypertrophy. Mild epidural lipomatosis. Moderate canal stenosis. Moderate left and moderate to severe right foraminal stenosis. Mild right L3 nerve root compression. L4-L5: Moderate disc height loss and desiccation. Mild diffuse disc bulge. Mild facet and ligamentum flavum hypertrophy. Mild canal stenosis. Severe bilateral foraminal stenosis with bilateral L4 nerve root compression. L5-S1:[Posterior fusion. Mild residual disc bulge/osteophyte. Mild bilateral facet hypertrophy. No significant canal stenosis. Mild bilateral foraminal stenosis. IMPRESSION: 1. Multilevel degenerative disc and facet disease, as well as ligamentum flavum hypertrophy. 2. Postsurgical sequelae. 3. Multilevel canal stenoses, worst at L3-L4 where there is moderate canal stenosis. 4. Multilevel foraminal stenoses, worst at L3-L4 and L4-L5 where there is associated intraforaminal nerve root compression. Correlation with clinical symptoms is recommended to assess relevance of these findings. This document has been electronically signed by: Marianne Garrido MD on 04/28/2025 18:56:54
--- OUTSIDE RECORDS SUMMARY | 2025-04-27 10:59 | XMS_ITS | Clinical Summary ---
Author Organization [employer] Address [address] [facility] [address] [place] [address] Care Team Providers Care Cad Intern Name Role Phone Suzie Patel MD Primary Care Pro vider Allergies Active Allergy Reactions Criticality Noted Date Comments Codeine Itching 03/24/2025 Medications * This document contains information received from the source organization and may not represent a complete record from that organization. Albuterol Sulfate (VENTOLIN HFA IN) Active Multiple Vitamins-Minera ls (multivitamin with iron-minerals) liquid Take by mouth Once per day. Active albuterol 108 (90 Base) MCG/ACT inhaler Inhale 2 puffs every 6 (six) hours if needed for wheezing. 18 g 11 5 03/24/20 26 Active Umeclidinium-Vi lanterol (Anoro Ellipta) 62.5-25 MCG/ACT aerosol powder Inhale 1 Inhalation Once per day. 1 each 3 5 Active gabapentin (Neurontin) 100 MG capsule Take 1 capsule (100 mg) by mouth every 12 (twelve) hours. 60 capsule 2 5 03/24/20 26 Active DULoxetine (Cymbalta) [address] capsule Take 1 capsule (30 mg) by mouth Once per day. Do not crush or chew. 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 Date Type Department Care Team Description 03/24/2025 9:15 AM EDT Office Visit [address] [id number] Suzie Patel MD COPD (chronic obstructive pulmonary disease) with acute bronchitis (CMS/HCC) ([facility]) (Primary Dx); Chronic low back pain, unspecified back pain laterality, unspecified whether sciatica present; Fingernail abnormalities; Annual physical exam; Unspecified sexually transmitted disease; Encounter for immunization; Lumbar radiculopathy; Health care maintenance; COPD with asthma (CMS/HCC); Heavy tobacco smoker; Shoulder pain, unspecified chronicity, unspecified laterality 03/24/2025 Telephone [facility] [address] [place] [phone] Suzie Patel MD Medication Question 03/24/2025 Travel 03/17/2025 Patient Outreach [facility] [address], [place] [phone] Suzie Patel MD Pre-visit Planning (SDOH will need to be completed in office.) 03/17/2025 Travel from Last 3 Months Immunizations Immunization Administration Dates Next Due Influenza Injectable Quadriv alant Preservative Free IIV4 MDCK 2023 Influenza injectable quadrivalent preservative f ree 05/02/2021 Influenza, seasonal, injectable, preservative fr ee 03/24/2025,04/28/2024 Pneumococcal Conjugate PCV 20 03/24/2025 Pneumococcal Polysaccharide PPSV23 12/26/2018 Tdap 10/24/2023 Zoster, Recombinant 09/06/2024,04/28/2024 Family History Medical History Relation Name Comments colon cancer unknown age Father Relation Name Status Comments Father Social History Tobacco Use Types Packs/Day Years Used Date Smoking Tobacco: Every Day Cigarettes Passive Smoke Exposure: Current Comments:Started smoking 7 y of age until now . 1 PQT a day , for 5 y was up to 2 PQT 1/2 A year but now back to 1 PQT a day Smoking for 47 y in average 1 PQT a day . PQT a year calc 47 Alcohol Use Standard Drinks/Week Comments Not Currently 0 (1 standard drink = 0.6 oz pur e alcohol) no hx of alcohol problems Depression Answer Date Recorded Patient Health Questionnaire-9 Score 18 03/24/2025 Patient Health Questionnaire-9 Score 18 03/24/2025 Last PHQ-9: Questionnaire Data Not on file 0 03/24/2025 Housing Stability Answer Date Recorded What is your housing situation today? I have rodri alexandre 03/24/[address] you li ve. Do you have problems with any of the following? None of the above 03/24/2025 Food Insecurity Answer Date Recorded Within the past 12 months, y ou worried that your food would run out before you got money to buy more: Never True 03/24/2025 Within the past 12 months,th e food you bought just didn't last and you didn't have enough money to get more: Never True Transportation Answer Date Recorded In the past 12 months, has l ack of transportation kept you from medical appts, meetings, work or from getting things needed for daily living? No 03/24/2025 Utilities Answer Date Recorded In the past 12 months, has t he electric, gas, oil or water company threatened to shut off services in your home? No 03/24/2025 Depression Answer Date Recorded Patient Health Questionnaire-2 Score 6 03/24/2025 Internet Access Answer Date Recorded Internet Access Q1 Yes 03/24/2025 Internet Access Q2 Not on file 03/24/2025 Sex and Gender Information Value Date Recorded Sex Assigned at Male 03/23/2025 1:53 PM EDT Legal Sex Male 9:31 AM EDT Gender Identity Male 03/17/2025 9:15 AM EDT Sexual Orientation Straight 03/17/2025 9: 15 AM EDT Last Filed Vital Signs Vital Sign Reading Time Taken Comments Blood Pressure 138/72 03/24/2025 9:18 AM EDT Pulse 58 03/24/2025 9:18 AM EDT Temperature 35.6 C (96.1 F) 03/24/2025 9:18 AM EDT Respiratory Rate 20 03/24/2025 9:18 AM EDT Oxygen Saturation 96% 03/24/2025 9:18 AM EDT Inhaled Oxygen Concentration - - Weight 65.8 kg (145 lb) 03/24/2025 9:18 AM EDT Height 167.6 cm (5' 6 ) 03/24/2025 9:18 AM EDT Body Mass Index 23.4 03/24/2025 9:18 AM EDT Plan of Treatment Upcoming Encounters Date Type Department Care Team (Late st Contact Info) Description 06/08/2025 10:00 AM EST Office Visit [facility] [address], [place] [phone] Suzie Patel MD [address], [place] [phone] Health Maintenance Due Date Last Done Comments Anal Pap 1970 CT Colonography 1970 Colonoscopy 1970 Colorectal Cancer Screening 1970 FIT DNA/Cologuard 1970 FIT 1970 FOBT 1970 HIV Screening 1970 Lipid Panel 1970 Sigmoidoscopy 1970 Hepatitis C Screening 1988 Hepatitis A Vaccines (1 of 2 - Risk 2-dose series) 1989 Hepatitis B Vaccines (1 of 3 - 19+ 3-dose series) 1989 COVID-19 Vaccine ( season) 2025 07/19/2021, 10/29/2020, 10/01/2020 Depression Monitoring 09/21/2025 03/24/2025, 025 Disability Screening 03/17/2026 03/17/2025 Alcohol/Substance Use Screening 03/24/2026 03/24/2025 SDOH Screening 03/24/2026 03/24/2025 Tobacco Screening 03/24/2026 03/24/2025 DTaP/Tdap/Td Vaccines (2 - Td or Tdap) 10/23/2033 10/24/2023 RSV Patients and Patients Aged 60 years or older (1 - 1-dose 75+ series) 2045 Zoster Vaccines Completed 09/06/2024, 04/28/2024 Influenza Vaccine Completed 03/24/2025, , 2023, Additional history exists Pneumococcal Vaccine: 50+ Years Completed 03/24/2025, 12/26/2018 HIB Vaccines Aged Out No longer eligi ble based on patient's age to complete this topic HPV Vaccines Aged Out No longer eligi ble based on patient's age to complete this topic IPV Vaccines Aged Out No longer eligi ble based on patient's age to complete this topic Meningococcal B Vaccine Aged Out No l onger eligible based on patient's age to complete this topic Meningococcal Vaccine Aged Out No river myron eligible based on patient's age to complete this topic RSV under 20 months Aged Out No longe r eligible based on patient's age to complete this topic Rotavirus Vaccines Aged Out No longer eligible based on patient's age to complete this topic Insurance [facility] MEDICARE Care Teams Cad Intern Relationship Specialty Start Date End Date Suzie Patel MD [address] [place] [id number] PCP - General Internal Medicine 03/24/25
== END 2025-04-27 09:33 | disposition home or self-care (01) ==
LOC: HO.MRI 09:32
PROVIDERS: PCP Student in an Organized Health Care Education/Training Program; Visit Provider Student in an Organized Health Care Education/Training Program
DX: M54.50 Low back pain, unspecified (principal); G89.29 Other chronic pain; M54.16 Radiculopathy, lumbar region
CPT/HCPCS: 72148